=== PATIENT | female | born 1965 ===

== ENCOUNTER 2021-12-08 13:41 | Emergency (ER) | payer MEDICAID, OTHER ==
[~2021-12-08] VITALS: Ht 162.6 cm; Wt 59.0 kg
[2021-12-08 14:55] LABS: Basophils # (auto) 0.1 10 ^3/uL (0-0.2); Basophils % (auto) 0.8 % (0.0-2.0); Eosinophils # (auto) 0 10 ^3/uL (0-0.8); Eosinophils % (auto) 0.3 % (0.0-7.0); Hematocrit 35.2 % (36.0-46.0); Hemoglobin 11.9 g/dL (12.2-16.2); Lymphocytes # (auto) 2.1 10 ^3/uL (0.4-5.4); Lymphocytes % (auto) 21.4 % (10.0-50.0); Mean Corpuscular Hemoglobin 31.3 pg (28.0-32.0); Mean Corpuscular Hgb Conc. 33.7 g/dL (32.0-36.0); Mean Corpuscular Volume 92.8 fL (80.0-100.0); Monocytes # (auto) 0.5 10 ^3/uL (0-1.3); Monocytes % (auto) 4.8 % (0.0-12.0); Neutrophils # (auto) 7.1 10 ^3/uL (1.6-8.6); Neutrophils % (auto) 72.7 % (37.0-80.0); Red Blood Cells 3.79 10^6/uL (4.0-5.20); Red Cell Distribution Width 14.9 % (11.8-14.3); White Blood Cell 9.7 10^3/uL (4.4-10.8)
[2021-12-08] MEDS ORDERED: LIDOCAINE VISCOUS 2% 15ML UD PO ONE (15:00)
[2021-12-08] MEDS ORDERED: ALUM & MAG HYDROX-SIMETH LIQ(MAALOX) 30 ML PO ONE (15:00)
[2021-12-08] MEDS ORDERED: ONDANSETRON HCL 4 MG/2 ML VIAL IV ONE (15:00)
[2021-12-08] MEDS ORDERED: FAMOTIDINE (10MG/ML) 2ML VL IV ONE (15:00)
[2021-12-08 15:14] LABS: Albumin 3.9 g/dL (3.4-5.0); Calcium 8.8 mg/dL (8.5-10.1); Potassium 3.5 mmol/L (3.5-5.1)
[2021-12-08 15:21] LABS: BUN/Creatinine Ratio 11.1; Bilirubin, Total 0.4 mg/dL (0.2-1.0); Total Protein 7.8 g/dL (6.4-8.2)
[2021-12-08 16:01] LABS: Urine Bacteria NONE SEEN /hpf (None Seen); Urine Blood Negative /uL (Negative); Urine Specific Gravity 1.015 (1.001-1.035); Urine WBC 3 /hpf (0 - 5)
[2021-12-08] MEDS ORDERED: OMEP-434 PO (17:55)
[2021-12-08 18:00] VITALS: BP 147/70
[2021-12-08] MEDS ORDERED: CEPH-322 PO (18:09)
== END 2021-12-08 18:22 | disposition home or self-care (01) ==
LOC: EDBD 13:41 → ER 13:41
DX: K29.70 Gastritis, unspecified, without bleeding (principal); N39.0 Urinary tract infection, site not specified; E78.5 Hyperlipidemia, unspecified; I10 Essential (primary) hypertension; F12.10 Cannabis abuse, uncomplicated
CPT/HCPCS: 36415; 71045; 76775; 80053; 81001; 83690; 84484; 85025; 93005; 96374; 96375; 99285; J2405; J3490